=== PATIENT | female | born 1995 | race Caucasian/White ===

== ENCOUNTER 2021-03-14 22:18 | Emergency (ER) | payer OTHER, BC ==
[~2021-03-14] VITALS: Ht 165.1 cm; Wt 105.0 kg
[2021-03-14] MEDS ORDERED: WELLBUTRIN XL300 MG PO (22:38)
[2021-03-14] MEDS ORDERED: GABAPENTIN300 M2 PO (22:38)
[2021-03-14] MEDS ORDERED: BACLOFEN10 MG PO (22:38)
[2021-03-14] MEDS ORDERED: ALLEGRA-D 2424 HOUR PO (22:39)
[2021-03-14] MEDS ORDERED: ALBUTEROL108 MCG/AC IN (22:41)
[2021-03-15] MEDS ORDERED: ULTRAM50 M1 PO (00:27)
[2021-03-15] MEDS ORDERED: CYCLOBENZAPRINE10 MG PO (00:27)
[2021-03-15 00:40] VITALS: BP 145/85
== END 2021-03-15 00:40 | disposition home or self-care (01) | DRG 563 ==
LOC: ED 22:18
DX: S63.501A Unspecified sprain of right wrist, initial encounter (principal); L53.8 Other specified erythematous conditions; J45.909 Unspecified asthma, uncomplicated; W22.11XA Striking against or struck by driver side automobile airbag, initial encounter; V53.5XXA Driver of pick-up truck or van injured in collision with car, pick-up truck or van in traffic accident, initial encounter